=== PATIENT | female | born 1960 | race Caucasian/White ===

== ENCOUNTER → 2016-09-29 | Outpatient (CLI) | payer SELFPAY ==
[~2016-09-29] MED LIST: ACCUPRIL20 MG PO; ACCURETIC 201 TABLE1 PO; AMLODIPINE BESY10 MG PO; ASPIR 8181 M1 PO; BUSPAR7.5 MG PO; COUMADIN,JANTO2.5 MG PO; Coumadin,Jantoven PO; DILAUDID2 MG PO; Dilaudid PO; Ecotrin PO; FEOSOL325 MG PO; Feosol PO; HYDROCHLOROTHIA25 MG PO; Halfprin PO; Hydrodiuril,Oretic,E PO; LYRICA150 MG PO; MIRALAX, GLYCOL1 PK1 PO; Motrin PO; NAPROSYN500 MG PO; NEXIUM40 MG PO; NITROSTAT0.4 MG SL; NORVASC10 MG PO; Norvasc PO; OXYBUTYNIN CHLOR5 M1 PO; Percocet 5/325,Endoc PO; PriLOSEC PO; QUINAPRIL HCL40 MG PO; RANITIDINE HCL150 MG PO; STUDY DRUG PO; TYLENOL ARTHRI650 MG PO; Tylenol Regular Stre PO; VITAMIN D1000 INTUN PO; Zoloft PO
== END | disposition home or self-care (01) ==
LOC: RAD 16:57
DX: I82.441 Acute embolism and thrombosis of right tibial vein (principal); M79.604 Pain in right leg
CPT/HCPCS: 93971

== ENCOUNTER → 2017-03-10 | Outpatient (CLI) | payer SELFPAY | END | disposition home or self-care (01) | LOC: RAD 14:51 | DX: M79.604 Pain in right leg (principal); M79.605 Pain in left leg | CPT/HCPCS: 93970 ==

== ENCOUNTER → 2017-06-16 | Outpatient (CLI) | payer SELFPAY | END | disposition home or self-care (01) | LOC: RAD 15:00 | DX: R22.43 Localized swelling, mass and lump, lower limb, bilateral (principal) | CPT/HCPCS: 93970 ==